=== PATIENT | male | born 1965 | race Caucasian/White ===

== ENCOUNTER 2020-05-31 01:00 | Emergency (ER) | payer OTHER ==
[~2020-05-31] VITALS: Ht 180.3 cm; Wt 83.3 kg
[2020-05-31 01:31] VITALS: BP 161/115
[2020-05-31] MEDS ORDERED: DIPH,PERTUSS(ACELL),TET VAC/PF 0.5 ML IM-VACC ONE ×2 (02:00→02:08)
[2020-05-31] MEDS ORDERED: LIDOCAINE 1%, 10ML INFIL ONE (02:00)
[2020-05-31] MEDS ORDERED: LIDOCAINE-MPF 1%, 5ML ONE (02:07)
--- NOTE | 2020-05-31 02:10 | NUR ---
ERP AT BEDSIDE FOR SUTURE ON PATIENTS LEFT MIDDLE FINER. PATIENT AGREEABLE TO POC. TDAP PULLED
--- NOTE | 2020-05-31 02:37 | NUR ---
BREAK RN: PROVIDER AT BEDSIDE WITH PATIENT SUTURING SITE. PATIENT TOLERATING WELL. NO ADDITIONAL NEEDS NOTED AT THIS TIME.
[2020-05-31] MEDS ORDERED: IBUPROFEN 600 MG TABLET PO ONE (03:00)
[2020-05-31] MEDS ORDERED: NEOSPORIN OINT. PKT 1 PACKET ONE (03:04)
[2020-05-31] MEDS ORDERED: IBUPROFEN 600 MG TABLET ONE (03:04)
--- NOTE | 2020-05-31 03:13 | NUR ---
BREAK RN: FINGER BANDAGED, PATIENT SENT HOME WITH CARE PACKAGE TO PROMOTE PROPER SELF CARE AT HOME. NO NOTED ADDITIONAL NEEDS AT THIS TIME. WILL CONTINUE TO MONITOR. PATIENT IS PREPARED FOR DISCHARGE.
== END 2020-05-31 04:31 | disposition home or self-care (01) ==
LOC: ED 03:06
DX: S62.633B Displaced fracture of distal phalanx of left middle finger, initial encounter for open fracture (principal); W26.8XXA Contact with other sharp object(s), not elsewhere classified, initial encounter; Y93.89 Activity, other specified; Y92.89 Other specified places as the place of occurrence of the external cause; Y99.8 Other external cause status
CPT/HCPCS: 12041; 90471; 90715; 99284